=== PATIENT | male | born 1995 | race African-American/Black ===

== ENCOUNTER 2019-03-17 04:22 | Emergency (ER) | payer BC ==
[~2019-03-17] VITALS: Ht 190.5 cm; Wt 113.6 kg
[2019-03-17 04:27] VITALS: BP 133/82; TEMP 98.6
[2019-03-17] MEDS ORDERED: VENTOLIN0.09 MG IH (04:29)
[2019-03-17] MEDS ORDERED: PREDNISONE20 MG PO (04:44)
[2019-03-17 05:16] VITALS: PULSE 86
== END 2019-03-17 05:17 | disposition home or self-care (01) ==
LOC: COL.ER 04:22
DX: J45.901 Unspecified asthma with (acute) exacerbation (principal)
CPT/HCPCS: J7512